=== PATIENT | female | born 1970 | race Caucasian/White ===

== ENCOUNTER → 2016-02-15 | Outpatient (CLI) | payer MEDICAID | LOC: RAD 13:01 | PROVIDERS: ATTEND Specialist | DX: M54.12 Radiculopathy, cervical region (principal) | CPT/HCPCS: 72125 ==

== ENCOUNTER → 2016-07-22 | Outpatient (CLI) | payer MEDICAID ==
--- NOTE | 2016-07-22 15:42 | WOMENS IMAGING REPORT ---
EXAM DESCRIPTION: BILAT SCREENING MAMMO W/CAD COMPLETED DATE/TIME: 07/22/2016 11:08 am REASON FOR STUDY: ROUTINE SCREENING; Z12.31 Z12.31 ENCNTR SCREEN MAMMOGRAM FOR MALIGNANT NEOPLASM O F DARIUS COMPARISON: 2010 to 2015 TECHNIQUE: Standard craniocaudal and mediolateral oblique views of each breast recorded using [place] l acquisition. LIMITATIONS: None. FINDINGS: No masses, calcifications or architectural distortion. No areas of suspicion. Read with the assistance of CAD. [facility] - R2 Cenova Version 1.3 .[facility] - R2 Cenova Version 1.3 .[facility] - R2 Cenova Version 2.4 .[facility] [place] Cenova Version 2.4 .[facility] - R2 [employer] Version 9.2 IMPRESSION: NORMAL MAMMOGRAM. BIRADS 1. BREAST DENSITY: c. The breasts are heterogeneously dense, which may obscure small masses. BIRAD: 1 NEGATIVE RECOMMENDATION: ROUTINE SCREENING COMMENT: The patient has been notified of the results by letter per SA requirements. Additional no tification policies are in place for contacting patient with suspicious or incomplete findings. Quality ID #[id number]: [employer] recommends an annual screening mammogram for women aged 40 years or over. This facility utilizes a reminder system to ensure that all patients receive reminder letters, and/or direct phone calls for appointments. This includes reminders for routine scr eening mammograms, diagnostic mammograms, or other Breast Imaging Interventions when appropriate. Th is patient will be placed in the appropriate reminder system. [employer] ([employer]) has developed recommendations for screening MRI of the breast s in certain patient populations, to be used in conjunction with mammography. Breast MRI surveillanc e may be appropriate for women with more than 20% lifetime risk of developing breast cancer as deter mined by genetic testing, significant family history of the disease, or history of mantle radiation f or Hodgkins Disease. ACR Practice Guidelines 2008. TECHNICAL DOCUMENTATION: FINDING NUMBER: (1) ASSESSMENT: (1) JOB ID: [id number] [employer]- All Rights Reserved
== END ==
LOC: EDBD → WI 08:55
PROVIDERS: ATTEND Nurse Practitioner Family
DX: Z12.31 Encounter for screening mammogram for malignant neoplasm of breast (principal)
CPT/HCPCS: 77067; G0202

== ENCOUNTER 2016-08-14 07:56 | Outpatient (CLI) | payer MEDICAID ==
[2016-08-14] MEDS ORDERED: NORMAL SALINE 250 ML IV PRN (08:19)
[2016-08-14] MEDS ORDERED: IRON DEXTRAN COMPLEX 25 MG in NORMAL SALINE 100 ML IV PRN (08:21)
[2016-08-14] MEDS ORDERED: IRON DEXTRAN COMPLEX 775 MG in NORMAL SALINE 500 ML IV PRN (08:21)
[2016-08-14] MEDS ORDERED: IRON DEXTRAN COMPLEX 800 MG in NORMAL SALINE 500 ML IV PRN (08:37)
[2016-08-14 08:39] VITALS: BP 133/83
== END 2016-08-14 13:22 | disposition home or self-care (01) ==
LOC: EDBD → II 07:56 → 5TH 08:01 → II 13:22
PROVIDERS: ATTEND Internal Medicine
PROC: 3E033GC Introduction of Other Therapeutic Substance into Peripheral Vein, Percutaneous Approach (ICD-10-PCS; principal; 2016-08-14)
DX: D50.9 Iron deficiency anemia, unspecified (principal)
CPT/HCPCS: 96365; 96366; J1750; J7040; 96367; 96375

== ENCOUNTER 2016-08-21 07:58 | Outpatient (CLI) | payer MEDICAID ==
[~2016-08-21 07:58] MED LIST: IRON DEXTRAN COMPLEX 800 MG in NORMAL SALINE 500 ML IV PRN; NORMAL SALINE 250 ML IV PRN
[2016-08-21 09:30] VITALS: BP 126/72
== END 2016-08-21 13:49 | disposition home or self-care (01) ==
LOC: EDBD → II 07:58 → 5TH 07:59 → II 13:49
PROVIDERS: ATTEND Internal Medicine
PROC: 3E033GC Introduction of Other Therapeutic Substance into Peripheral Vein, Percutaneous Approach (ICD-10-PCS; principal; 2016-08-21)
DX: D60.8 Other acquired pure red cell aplasias (principal)
CPT/HCPCS: 96365; 96366; J1750; J7040; 96367

== ENCOUNTER 2016-08-28 07:57 | Outpatient (CLI) | payer MEDICAID ==
[~2016-08-28 07:57] MED LIST changes: +IRON DEXTRAN COMPLEX 800 MG in NORMAL SALINE 500 ML IV PRN; +NORMAL SALINE 250 ML IV PRN; -ONDANSETRON HCL INJ/PF 4 MG/2 ML SDV ONE
[2016-08-28 10:04] VITALS: BP 119/78
== END 2016-08-28 13:30 | disposition home or self-care (01) ==
LOC: EDBD → II 07:57 → 5TH 08:03 → II 13:30
PROVIDERS: ATTEND Internal Medicine
PROC: 3E033GC Introduction of Other Therapeutic Substance into Peripheral Vein, Percutaneous Approach (ICD-10-PCS; principal; 2016-08-28)
DX: D50.8 Other iron deficiency anemias (principal)
CPT/HCPCS: 96365; 96366; J1750; J7040; 96367

== ENCOUNTER → 2016-08-28 | Outpatient (CLI) | payer MEDICAID ==
[~2016-08-28] MED LIST changes: -IRON DEXTRAN COMPLEX 800 MG in NORMAL SALINE 500 ML IV PRN; -NORMAL SALINE 250 ML IV PRN; +ONDANSETRON HCL INJ/PF 4 MG/2 ML SDV ONE
== END ==
LOC: EDBD → II 13:26
PROVIDERS: ATTEND Internal Medicine
DX: D50.8 Other iron deficiency anemias (principal)

== ENCOUNTER → 2016-09-03 | Outpatient (CLI) | payer MEDICAID ==
--- NOTE | 2016-09-03 11:46 | RADIOLOGY REPORT (SQ) ---
EXAM DESCRIPTION: CERV SP 4 OR 5 VIEWS COMPLETED DATE/TIME: 09/03/2016 10:58 am REASON FOR STUDY: CERVICAL RADICULOPATHY (AP/LAT/FLEX/EXT) COMPARISON: 01/29/2016. NUMBER OF VIEWS: Four view. TECHNIQUE: AP and lateral views of the cervical spine with flexion and extension. LIMITATIONS: None. FINDINGS: MINERALIZATION: Normal. ALIGNMENT: Anatomic. FLEXION/EXTENSION: No instability. VERTEBRAE: Vertebral bodies of normal height. DISCS: No significant osteophytes or sclerosis. Disc height maintained. LATERAL AND POSTERIOR ELEMENTS: Facets, lateral masses, and spinous processes without significant fin dings. HARDWARE: Stable anterior hardware at C5-C6 and C6-C7. New posterior hardware at C7-T1. SOFT TISSUES: No masses or calcifications. Lung apices clear. OTHER: No other significant finding. IMPRESSION: HARDWARE IN THE LOWER CERVICAL SPINE. NO INSTABILITY ON FLEXION/EXTENSION. TECHNICAL DOCUMENTATION: JOB ID: [id number] [employer]- All Rights Reserved
== END ==
LOC: EDBD → RAD 10:16
PROVIDERS: ATTEND Specialist
DX: M54.12 Radiculopathy, cervical region (principal)
CPT/HCPCS: 72050

== ENCOUNTER 2016-09-05 07:34 | Outpatient (CLI) | payer MEDICAID ==
[2016-09-05 07:51] VITALS: BP 122/66
== END 2016-09-05 12:15 | disposition home or self-care (01) ==
LOC: EDBD → II 07:34 → 5TH 07:38 → EDBD 08:00 → II 12:15
PROVIDERS: ATTEND Internal Medicine
PROC: 3E033GC Introduction of Other Therapeutic Substance into Peripheral Vein, Percutaneous Approach (ICD-10-PCS; principal; 2016-09-05)
DX: D50.8 Other iron deficiency anemias (principal)
CPT/HCPCS: 96365; 96366; J1750; J7040

== ENCOUNTER 2018-09-30 18:38 | Emergency (ER) | payer BC, MEDICAID ==
[2018-09-30 18:50] VITALS: BP 129/79
--- NOTE | 2018-09-30 19:43 | ER Document Report ---
ED Medical Screen (RME) - General Chief Complaint: Chemical Burn Stated Complaint: BURN Time Seen by Provider: 09/30/18 19:41 Primary Care Provider: SUSIE PABON DPM [Primary Care Provider] - Follow up as needed Mode of Arrival: Ambulatory Information source: Patient Notes: 47-year-old female presented to ED for possible chemical membreno to her right hand 2 days ago. She states she was washing an antique dresser with water and then she started having burning sensation in the next day and her fingers skin sloughed off. She states that it does not hurt unless you touch it. There is no blistering at this time there is no signs or symptoms of infection. She does have a lot of the epidermis peeled off of her fingers. She has full range of motion of her hand. She states the pharmacist told her she needed to come to the emergency room as this was dangerous. I have greeted and performed a rapid initial assessment of this patient. A comprehensive ED assessment and evaluation of the patient, analysis of test results and completion of medical decision making process will be conducted by an additional ED providers. TRAVEL OUTSIDE OF THE [place] IN LAST 30 DAYS: No - Related Data Allergies/Adverse Reactions: erythromycin base [Erythromycin Base] Allergy (Verified 09/30/18 18:43) latex [Latex] Allergy (Verified 09/30/18 18:43) Penicillins Allergy (Verified 09/30/18 18:43) Past Medical History - Social History Frequency of alcohol use: None Drug Abuse: None Renal/ Medical History: Denies: Hx Peritoneal Dialysis - Immunizations Hx Diphtheria, Pertussis, Tetanus Vaccination: Yes Physical Exam - Vital signs Vitals: Temp Pulse Resp BP Pulse Ox 98.4 F 83 14 129/79 H 96 09/30/18 18:49 09/30/18 18:49 09/30/18 18:49 09/30/18 18:49 09/30/18 18:49 Course - Vital Signs Vital signs: Temp Pulse Resp BP Pulse Ox 98.4 F 83 14 129/79 H 96 09/30/18 18:49 09/30/18 18:49 09/30/18 18:49 09/30/18 18:49 09/30/18 18:49 Doctor's Discharge - Discharge Referrals: SUSIE PABON DPM [Primary Care Provider] - Follow up as needed
[2018-09-30] MEDS ORDERED: DIPH/PERTUSS(ACELL)/TETANUS VAC/PF 0.5 ML SYR (>=10YO) IM ONE (21:05)
--- NOTE | 2018-09-30 21:06 | ER Document Report ---
ED Extremity Problem, Upper - General Chief Complaint: Chemical Burn Stated Complaint: BURN Time Seen by Provider: 09/30/18 19:41 Mode of Arrival: Ambulatory Notes: Patient is a 47-year-old female that comes to the emergency department for chief complaint of peeling skin to the right hand. She is right-handed. She states that she believes that she had a chemical burn from cleaning an antique dresser, she states she was scrubbing it with her right hand, she states that yesterday she started getting pain and peeling, she states that she is concerned because after she cleaned her hand again today she started feeling spreading to the back of her fingers in addition to the palm now. She states that if she touches anything she gets a lot of pain but if she is not touching anything that hand does not hurt. She denies any other complaints. Her tetanus is not up-to-date within 5 years. She is not a diabetic. Past medical history of anemia and hypothyroidism. TRAVEL OUTSIDE OF THE [place] IN LAST 30 DAYS: No - Related Data Allergies/Adverse Reactions: erythromycin base [Erythromycin Base] Allergy (Verified 09/30/18 18:43) latex [Latex] Allergy (Verified 09/30/18 18:43) Penicillins Allergy (Verified 09/30/18 18:43) Past Medical History - General Information source: Patient - Social History Smoking Status: Never Smoker Frequency of alcohol use: None Drug Abuse: None Lives with: Family Family History: Reviewed & Not Pertinent Patient has suicidal ideation: No Patient has homicidal ideation: No Renal/ Medical History: Denies: Hx Peritoneal Dialysis - Immunizations Immunizations up to date: No Hx Diphtheria, Pertussis, Tetanus Vaccination: Yes Review of Systems - Review of Systems Constitutional: No symptoms reported EENT: No symptoms reported Cardiovascular: No symptoms reported Respiratory: No symptoms reported Gastrointestinal: No symptoms reported Genitourinary: No symptoms reported Female Genitourinary: No symptoms reported Musculoskeletal: See HPI Skin: See HPI Hematologic/Lymphatic: No symptoms reported Neurological/Psychological: No symptoms reported Physical Exam - Vital signs Vitals: Temp Pulse Resp BP Pulse Ox 98.4 F 83 14 129/79 H 96 09/30/18 18:49 09/30/18 18:49 09/30/18 18:49 09/30/18 18:49 09/30/18 18:49 - Notes Notes: GENERAL: Alert, interacts well. No acute distress. HEAD: Normocephalic, atraumatic. EYES: Pupils equal, round, and reactive to light. Extraocular movements intact. ENT: Oral mucosa moist, tongue midline. Oropharynx unremarkable. Airway patent. LUNGS: Clear to auscultation bilaterally, no wheezes, rales, or rhonchi. No respiratory distress. HEART: Regular rate and rhythm. No murmur ABDOMEN: Soft, non-tender. Non-distended. EXTREMITIES: There is sloughing of the epidermis only over the fingers of the right hand at the thumb, second, third, fourth fingers, sloughing is over the palmar aspect at and past the PIP on the palmar surface, there is also some erythema over the dorsal surface at the DIP areas of the same fingers. There is also some erythema of the palm noted. There is no swelling, no severe tenderness, range of motion is intact, capillary refill and sensation are intact. BACK: no cervical, thoracic, lumbar midline tenderness. No saddle anesthesia, normal distal neurovascular exam. NEUROLOGICAL: Alert and oriented x3. Normal speech. Cranial nerves II through XII grossly intact. SKIN: Warm, dry, normal turgor. No rashes or lesions noted. Course - Re-evaluation Re-evalutation: Physical exam is strange, does appear to be some skin sloughing from initially chemical burn, there appears to be a reactive component as well with some erythema developing over the dorsal surface. There is no purulent drainage, severe tenderness, abnormal heat, signs of secondary infection at this time. Updated tetanus, discussed with Dr. Roman. Recommendation is for patient to have Silvadene provided, Silvadene cream dressings at home, and steroid taper. I discussed this in detail with patient, discussed follow-up, discussed return precautions in detail. Patient states satisfaction and agreement with plan. - Vital Signs Vital signs: Temp Pulse Resp BP Pulse Ox 98.4 F 83 14 129/79 H 96 09/30/18 18:49 09/30/18 18:49 09/30/18 18:49 09/30/18 18:49 09/30/18 18:49 Discharge - Discharge Clinical Impression: Peeling skin, Chemical burn, Rash Condition: Stable Disposition: HOME, SELF-CARE Additional Instructions: Your hand is consistent with chemical burn and contact reaction. As result we are treating you with steroids and the topical Silvadene cream, apply 1-2 times daily, clean gently with soap and water before reapplying. Do not apply any other products. This should heal and resolve with time. Follow-up with primary care closely for recheck. Return immediately if you worsen including developing discharge, crusting, spreading redness, increased pain, fever/chills, or any other concerning symptoms. Prescriptions: Prednisone [Deltasone 10 mg Tablet] 10 mg PO ASDIR PRN #21 tablet PRN Reason:
[2018-09-30] MEDS ORDERED: PREDNISONE 20 MG TABLET PO ONE (21:58)
[2018-09-30] MEDS ORDERED: SILVER SULFADIAZINE 1% CREAM 400 GM TP ONE (21:58)
== END 2018-09-30 22:35 | disposition home or self-care (01) ==
LOC: ER 18:38
DX: R21 Rash and other nonspecific skin eruption (principal); T52.91XA Toxic effect of unspecified organic solvent, accidental (unintentional), initial encounter; T23.401A Corrosion of unspecified degree of right hand, unspecified site, initial encounter; Y92.009 Unspecified place in unspecified non-institutional (private) residence as the place of occurrence of the external cause; Z88.3 Allergy status to other anti-infective agents; Z88.0 Allergy status to penicillin; Z91.040 Latex allergy status; Z23 Encounter for immunization
CPT/HCPCS: 99283; 90471; 90715; J7512; J3490

== ENCOUNTER 2019-03-15 09:12 | Outpatient (CLI) | payer BC ==
[~2019-03-15 09:12] MED LIST changes: +FERUMOXYTOL (NON-ESRD) 510 MG/NS 100 ML IV PRN; -IRON DEXTRAN COMPLEX 800 MG in NORMAL SALINE 500 ML IV PRN
[2019-03-15 09:35] VITALS: BP 119/76
== END 2019-03-15 10:40 | disposition home or self-care (01) ==
LOC: II 09:12 → 5TH 09:15 → II 10:40
PROVIDERS: ATTEND Internal Medicine
DX: D50.9 Iron deficiency anemia, unspecified (principal); K90.9 Intestinal malabsorption, unspecified
CPT/HCPCS: 96365; Q0138; J7050

== ENCOUNTER 2019-03-22 09:44 | Outpatient (CLI) | payer BC ==
[2019-03-22 10:01] VITALS: BP 130/62
== END 2019-03-22 10:47 | disposition home or self-care (01) ==
LOC: II 09:44 → 5TH 09:46 → II 10:47
PROVIDERS: ATTEND Internal Medicine
DX: D50.9 Iron deficiency anemia, unspecified (principal); K90.9 Intestinal malabsorption, unspecified
CPT/HCPCS: 96365; Q0138; J7050

== ENCOUNTER 2019-09-20 10:49 | Outpatient (CLI) | payer BC ==
[2019-09-20] MEDS ORDERED: FERUMOXYTOL (NON-ESRD) 510 MG/NS 100 ML IV PRN ×2 (11:04)
[2019-09-20] MEDS ORDERED: NORMAL SALINE 250 ML IV PRN (11:04)
[2019-09-20 11:22] VITALS: BP 120/69
== END 2019-09-20 12:47 | disposition home or self-care (01) ==
LOC: II 10:49 → 5TH 11:33 → II 12:47
PROVIDERS: ATTEND Internal Medicine
DX: D50.9 Iron deficiency anemia, unspecified (principal); K90.9 Intestinal malabsorption, unspecified
CPT/HCPCS: 96365; Q0138; J7050

== ENCOUNTER 2019-09-27 08:14 | Outpatient (CLI) | payer BC ==
[~2019-09-27 08:14] MED LIST changes: -FERUMOXYTOL (NON-ESRD) 510 MG/NS 100 ML IV PRN; +FERUMOXYTOL 510 MG in NORMAL SALINE 100 ML IV PRN
[2019-09-27 08:25] VITALS: BP 116/68
== END 2019-09-27 09:05 | disposition home or self-care (01) ==
LOC: II 08:14 → 5TH 08:15 → II 09:05
PROVIDERS: ATTEND Internal Medicine
DX: D50.9 Iron deficiency anemia, unspecified (principal); K90.9 Intestinal malabsorption, unspecified
CPT/HCPCS: 96365; Q0138; J7050

== ENCOUNTER 2019-12-23 12:51 | Outpatient (CLI) | payer BC ==
[2019-12-23] MEDS ORDERED: FERUMOXYTOL (NON-ESRD) 510 MG/NS 100 ML IV PRN ×2 (12:58)
[2019-12-23] MEDS ORDERED: NORMAL SALINE 250 ML IV PRN (12:58)
[2019-12-23 13:11] VITALS: BP 125/71
== END 2019-12-23 13:58 | disposition home or self-care (01) ==
LOC: II 12:51 → 5TH 12:56 → II 13:58
PROVIDERS: ATTEND Internal Medicine
DX: D50.9 Iron deficiency anemia, unspecified (principal); K90.9 Intestinal malabsorption, unspecified
CPT/HCPCS: 96365; Q0138; J7050

== ENCOUNTER 2020-01-06 09:03 | Outpatient (CLI) | payer BC ==
[2020-01-06 09:40] VITALS: BP 117/70
== END 2020-01-06 10:30 | disposition home or self-care (01) ==
LOC: II 09:03 → 5TH 09:43 → II 10:30
PROVIDERS: ATTEND Internal Medicine
DX: D50.9 Iron deficiency anemia, unspecified (principal); K90.9 Intestinal malabsorption, unspecified
CPT/HCPCS: 96365; Q0138; J7050